=== PATIENT | male | born 1980 | race African-American/Black ===

== ENCOUNTER 2021-11-18 09:42 | Emergency (ER) | payer SELFPAY ==
--- NOTE | 2021-11-18 09:43 | ED.MALEGU ---
HPI - Male Genitourinary General Chief complaint: Urogenital-Male Stated complaint: STD Time Seen by Provider: 11/18/21 09:43 Source: patient Mode of arrival: ambulatory Limitations: no limitations History of Present Illness HPI Narrative: Mr. Farrar is a 41-year-old male patient presenting to the clinic today for possible STD. He reports his was tested 2 days ago and was positive for trichomonas. He denies any urinary symptoms, itching, or discharge from the penis. Review of Systems Review of Systems: Pertinent positives per HPI. Patient denies any fever, chills, rash, headache, visual changes, dizziness, cough, runny nose, sore throat, shortness of breath, chest pain, palpitations, nausea, vomiting, diarrhea, constipation, abdominal pain, or any urinary issues. PMFSH Comments At the time of my signature, I reviewed and agree with the nursing past medical, surgical, social, and family history. There is no relevant family history pertinent to the patient complaint. Exam Narrative: General: Well-developed, well nourished, in no apparent distress. Head: Normocephalic, atraumatic. Cardio: Regular rate and rhythm, s1 and s2 normal, no murmur appreciated. Resp: Clear to auscultation bilaterally, no rhonchi, rales, wheezing or rubs. Abdomen: Soft, pliable, bowel sounds present in all quadrants, non-tender to palpation, no organomegly, no CVAT tenderness. : Deferred Course Course Emergency Course: Portions of this record may have been created with voice recognition software. Level of Care: Express Care Visit Vital Signs Vital signs: Vital signs reviewed MDM - Male Genitourinary MDM Narrative Medical decision making narrative: At the time of visit patient is resting comfortably on the exam table. Patient has had positive exposure to trichomonas. Urine sent for trichomonas, chlamydia, and gonorrhea testing. We will send in prescription for single dose 2 g Flagyl to the pharmacy and patient was instructed on how to take this. Supportive measures were discussed and patient voiced understanding of discharge instruction Differential Diagnosis Differential diagnosis: Likely urinary tract infection, urethritis and other (STI exposure to trichomonas) Discharge Plan Discharge Clinical Impression: Exposure to sexually transmitted disease (STD), Trichomonas contact, untreated Patient Disposition: Home, Self-Care Condition: Stable Instructions: Antibiotic Form, Sexually Transmitted Diseases (ED), Safe Sex Practices (ED), Trichomoniasis (ED) Additional Instructions: Take flagyl 2 Gm single dose No intercourse x 1 week or until you get testing results. U/A testing send for culture for chlamydia, gonorrhea, and trichomonas. We will contact you with results when they come in. Follow up with your PCP as needed. Prescriptions: New metronidazole 500 mg tablet 2,000 mg PO DAILY Qty: 4 0RF Rx Instructions: take 4 tabs (2Gm) in single dose Follow-up/Referrals: PHYSICIAN,AUTO BODY WORKER [Primary Care Provider] - Time of Disposition: 10:04 Quality NIHSS Nursing Documentation ED NIHSS nursing documentation: reviewed/agree
[2021-11-18 09:55] VITALS: BP 149/81; PULSE 73; RESP 16; TEMP 36.6; O2SAT 100
== END 2021-11-18 10:05 | disposition home or self-care (01) ==
PROVIDERS: Emergency Provider Nurse Practitioner Family
DX: Z20.2 Contact with and (suspected) exposure to infections with a predominantly sexual mode of transmission (principal)
CPT/HCPCS: 87486; 87491; 87591; 87661; 99203; G0463

== ENCOUNTER 2021-11-30 12:09 | Emergency (ER) | payer SELFPAY ==
--- NOTE | 2021-11-30 12:31 | PC.NURSE ---
came to nurse station and stated needed to use br. said last time was here was given urine cup. was given ua spec. container and aware to take in rm [address] on counter on paper towel.
[2021-11-30 12:37] VITALS: BP 135/85; PULSE 63; RESP 16; TEMP 36.5; O2SAT 99
--- NOTE | 2021-11-30 13:05 | ED.MALEGU ---
HPI - Male Genitourinary General Chief complaint: Urogenital-Male Stated complaint: std testing Time Seen by Provider: 11/30/21 13:00 Source: patient and RN notes reviewed Mode of arrival: ambulatory Limitations: no limitations History of Present Illness HPI Narrative: 41-year-old male presents concern for exposure to STD. Reports his girlfriend tested positive for trichomoniasis, they were both treated. Reports possible rate exposure to trichomoniasis. He denies symptoms MD Complaint: possible STD exposure Related Data Allergies Allergy/AdvReac Type Severity Reaction Status Date / Time No Known Allergies Allergy Verified 11/30/21 13:10 Review of Systems Review of Systems: CONSTITUTIONAL: Denies malaise, chills, sweats, or fever. CARDIOVASCULAR: Denies chest pain, palpitations, or edema. RESPIRATORY: Denies cough or dyspnea. GASTROINTESTINAL: Denies abdominal pain, nausea, vomiting, diarrhea GENITOURINARY: Denies dysuria, frequency, urgency, suprapubic pressure. Denies flank pain or hematuria. Denies discharge SKIN: Denies rash or itching. MUSCULOSKELETAL: Denies back pain or myalgia. All systems reviewed & are unremarkable except as noted in HPI and below PMFSH Comments At time of signature, agree with nursing past medical, surgical, social and family history. There is no relevant family history pertinent to the presenting complaint Exam Narrative: GENERAL: Well-appearing, well-nourished, and in no acute distress. HEAD: Normocephalic. EYES: PERRLA, conjunctivae clear. NECK: Supple. No lymphadenopathy CHEST: Clear to auscultation. No respiratory distress. HEART: Regular rate and rhythm. SKIN: Warm, dry, no rash. NEURO: Alert and oriented x3. PSYCH: Normal mood and affect Course Course Emergency Course: Patient is aware of diagnosis, understands and agrees to treatment plan. Anticipatory guidance given. Patient agrees to follow-up as directed and is aware of reasons to seek care at the emergency department. Portions of this record may have been created with voice recognition software Level of Care: Express Care Visit Vital Signs Vital signs: Vital Signs Temperature 97.7 F 11/30/21 12:37 Pulse Rate 63 11/30/21 12:37 Respiratory Rate 16 11/30/21 12:37 Blood Pressure 135/85 11/30/21 12:37 Pulse Oximetry 99 11/30/21 12:37 Oxygen Delivery Room Air 11/30/21 12:37 Temperature 97.7 F 11/30/21 12:37 Pulse Rate 63 11/30/21 12:37 Respiratory Rate 16 11/30/21 12:37 Blood Pressure 135/85 11/30/21 12:37 Pulse Oximetry 99 11/30/21 12:37 Oxygen Delivery Room Air 11/30/21 12:37 Reviewed. MDM - Male Genitourinary MDM Narrative Medical decision making narrative: Exam findings show no acute concerns or changes; patient is non-toxic appearing and is in no distress. Patient is appropriate for outpatient treatment and follow-up. Differential Diagnosis Differential diagnosis: Likely urinary tract infection and urethritis Critical Care Time Critical Care Time Critical Care Time: No Discharge Plan Discharge Clinical Impression: Possible exposure to STD Patient Disposition: Home, Self-Care Condition: Stable Instructions: Antibiotic Form, Safe Sex Practices (ED) Additional Instructions: You have been tested for potential gonorrhea, chlamydia, and trichomoniasis today. A prescription has been called into your pharmacy to treat trichomoniasis. You will receive a phone call in 2-3 days with the results of today's testing; may need to return for treatment for gonorrhea or chlamydia if either of those are positive It is very important that you avoid unprotected intercourse during treatment and for 7 days AFTER TREATMENT is complete and until your partner(s) have been treated. Please encourage your partner(s) to seek testing and treatment. When you have been exposed to sexually transmitted infections, it is important that you seek comprehensive testing, since we do not
== END 2021-11-30 13:15 | disposition home or self-care (01) ==
PROVIDERS: Emergency Provider Nurse Practitioner
DX: Z04.89 Encounter for examination and observation for other specified reasons (principal)
CPT/HCPCS: 87491; 87591; 87661; 99213; G0463

== ENCOUNTER 2024-09-26 14:18 | Emergency (ER) | payer SELFPAY ==
--- NOTE | ~2024-09-26 | CT_ITS ---
EXAMINATION: CT abdomen pelvis w con DATE: 09/26/2024 16:03 INDICATION: Hematemesis TECHNIQUE: Computed tomography (CT) of the abdomen and pelvis was performed with 100 mL Omnipaque-350 intravenous contrast. Automated exposure control and iterative reconstruction technique were employe d. The dose-length product was 219.95 mGy-cm. COMPARISON: None FINDINGS: Mild dependent atelectasis in bilateral lower lobes. Arch size is normal. No pericardial or pleural e ffusion. Liver, gallbladder, spleen, pancreas, bilateral adrenal glands and kidneys are normal. Bladd er is normal. Bowels including the appendix are normal. No free intraperitoneal gas or fluid. No path ologically enlarged abdominal or pelvic lymphadenopathy. Mild disc height loss with vacuum phenomena at L5-S1. There are relatively symmetric mixed lytic and sclerotic lesions at the bilateral iliac bon es along side the bilateral sacroiliac joints. IMPRESSION: 1. No acute intra-abdominal/pelvic process. 2. Indeterminate relatively symmetric mixed lytic and sclerotic lesions at the bilateral iliac bones along side the sacroiliac joints. Consider bone scan for further evaluation and correlate with any pr ior outside imaging if available. Reviewed, dictated and finalized at location B. IMPRESSION: 1. No acute intra-abdominal/pelvic process. 2. Indeterminate relatively symmetric mixed lytic and sclerotic lesions at the bilateral iliac bones along side the sacroiliac joints. Consider bone scan for further evaluation and correlate with any prior outside imaging if available.
[2024-09-26 14:28] VITALS: BP 131/87; PULSE 70; RESP 18; TEMP 36.7; O2SAT 99
[2024-09-26 15:01] LABS: Alanine Aminotransferase 40 U/L (6-50); Albumin Level 4.6 g/dL (3.5-5.1); Alkaline Phosphatase 54 U/L (38-126); Anion Gap 7 mmol/L (4-12); Aspartate Amino Transferase 55 U/L (17-59); Bilirubin,Total 0.4 mg/dL (0.2-1.3); Blood Urea Nitrogen 11 mg/dL (9-20); Calcium 9.5 mg/dL (8.4-10.2); Carbon Dioxide 30 mmol/L (22-30); Chloride 104 mmol/L (98-107); Estimated CRCL calculation 85 ml/min; Estimated Glomerular Filt Rate > 60; Glucose 103 mg/dL (65-110); Lipase 56 U/L (23-300); Potassium 4.4 mmol/L (3.4-5.0); Sodium 141 mmol/L (137-145); Total Protein 8.1 g/dL (6.3-8.2)
[2024-09-26 15:02] LABS: Basophils Absolute Auto 0.1 K/mm3 (0.0-0.1); Eosinophils Percent Auto 0.1 % (0-4.4); Hematocrit 42.8 % (42.0-52.0); Hemoglobin 14.3 g/dL (14.0-18.0); Immature Granulocyte Absolute 0.04 K/mm3 (0.00-0.031); Immature Granulocyte Percent A 0.5 % (0-0.5); Lymphocytes Absolute Auto 1.62 K/mm3 (0.9-3.2); Lymphocytes Percent Auto 18.4 % (18.3-44.2); Mean Corpuscular HGB Conc 33.4 g/dl (32-36); Mean Corpuscular Hemoglobin 29.7 pg (26-34); Mean Platelet Volume 9.9 fl (7.4-10.4); Monocytes Absolute Auto 0.5 K/mm3 (0.1-0.6); Neutrophils Absolute Auto 6.5 K/mm3 (1.3-6.7); Platelet Count Result 297 k/mm3 (150-375); Red Blood Count 4.81 M/mm3 (4.6-6.20); Red Cell Distribution Width 14.2 % (11.5-14.5); White Blood Count 8.8 K/mm3 (4.5-10.0)
[2024-09-26 15:37] LABS: Add Urine Microscopic? YES; Appearance Urine Clear (Clear); Bacteria Urine None Seen /hpf; Bilirubin Urine Negative (Negative); Blood Urine Negative (Negative); Color Urine Yellow (Yellow); Glucose Urine UA Negative (Negative); Ketones Urine Negative (Negative); Leukocyte Esterase Ur Negative LEU/UL (Negative); Nitrate Urine Negative (Negative); Non Pathogenic Casts 0-2; Protein Urine Trace mg/dL (Negative); RBC Urine 0-2 /hpf (0-2); Specific Grav Ur 1.018 (1.001-1.035); Squamous Epithelial Cell Urine None Seen /hpf (Few); WBC Urine 0-5 /hpf (0-3); pH Urine >=9.0 (5.0-9.0)
[2024-09-26 16:20] VITALS: BP 159/93; PULSE 70; RESP 19; O2SAT 98
--- NOTE | 2024-09-26 17:10 | ED.GENADULT ---
HPI - General Adult General Chief complaint: GI Bleed Stated complaint: vomiting blood, abdominal pain Time Seen by Provider: 09/26/24 14:28 History of Present Illness HPI narrative: This is a 44-year-old male presenting with concerns about vomiting blood. Patient had a gas station hot dog and then a fruit punch. He then had several episodes of nausea and vomiting that was at 1st pink and red. However later it became more mucous-like with traces of red blood. He says some crampy abdominal pain. No diarrhea. No history of liver cirrhosis. He does have a remote history of peptic ulcer disease. No melena or hematochezia. No use of blood thinners Related Data Allergies Allergy/AdvReac Type Severity Reaction Status Date / Time No Known Allergies Allergy Verified 09/26/24 14:36 Exam Narrative: APPEARANCE: No apparent distress. Head: atraumatic. EYES: EOMI, NOSE: Atraumatic NECK: Trachea midline RESPIRATORY: No increased rate of breathing CARDIOVASCULAR: RRR, ABDOMINAL: Non-distended soft nontender no guarding rebound Digital rectal exam revealed no hematochezia or melena. Hemoccult negative. MUSCULOSKELETAl: No obvious deformities NEURO: Alert. Moving 4/4 extremities SKIN:: Warm, dry. Normal color PSYCHIATRIC: Normal affect Course Vital Signs Vital signs: Vital Signs Temperature 98.1 F 09/26/24 14:28 Pulse Rate 70 09/26/24 14:28 Respiratory Rate 18 09/26/24 14:28 Blood Pressure 131/87 09/26/24 14:28 Pulse Oximetry 99 09/26/24 14:28 Oxygen Delivery Room Air 09/26/24 14:28 Temperature 98.1 F 09/26/24 14:28 Pulse Rate 70 09/26/24 16:20 Respiratory Rate 19 09/26/24 16:20 Blood Pressure 159/93 H 09/26/24 16:20 Pulse Oximetry 98 09/26/24 16:20 Oxygen Delivery Room Air 09/26/24 14:28 Medical Decision Making MDM Narrative Medical decision making narrative: -Course: 44-year-old male presenting with nausea and vomiting after eating a gas station hot dog. Patient is concerned about GI bleeding. Hemoglobin is stable. No elevations in BUN to indicate an upper GI bleed. No history of liver cirrhosis. No melena or hematochezia or Hemoccult positive stools. Patient was monitored in the ED for several hours and symptoms have resolved. CT abdomen pelvis had no GI findings. There were some sclerotic/lytic lesions in his pelvis of unknown etiology.Patient discharged with return precautions. -DDX includes but is not limited to: Maia-Goodman tears, gastritis, peptic ulcer disease, Vital Signs Vital Signs: Vital Signs Temperature 98.1 F 09/26/24 14:28 Pulse Rate 70 09/26/24 14:28 Respiratory Rate 18 09/26/24 14:28 Blood Pressure 131/87 09/26/24 14:28 Pulse Oximetry 99 09/26/24 14:28 Oxygen Delivery Room Air 09/26/24 14:28 Temperature 98.1 F 09/26/24 14:28 Pulse Rate 70 09/26/24 16:20 Respiratory Rate 19 09/26/24 16:20 Blood Pressure 159/93 H 09/26/24 16:20 Pulse Oximetry 98 09/26/24 16:20 Oxygen Delivery Room Air 09/26/24 14:28 Lab Data 09/26/24 14:34 09/26/24 14:34 Labs: Lab Results 09/26/24 09/26/24 Range/Units 14:34 15:26 WBC 8.8 (4.5-10.0) K/mm3 RBC 4.81 (4.6-6.20) M/mm3 Hgb 14.3 (14.0-18.0) g/dL Hct 42.8 (42.0-52.0) % MCV 89.0 (80-100) fl MCH 29.7 (26-34) pg MCHC 33.4 (32-36) g/dl RDW 14.2 (11.5-14.5) % Plt Count 297 (150-375) k/mm3 MPV 9.9 (7.4-10.4) fl Immature Gran % (Auto) 0.5 (0-0.5) % Neut % (Auto) 74.0 H (45.5-73.1) % Lymph % (Auto) 18.4 (18.3-44.2) % [place] % (Auto) 6.0 (2.6-8.5) % Eos % (Auto) 0.1 (0-4.4) % Baso % (Auto) 1.0 (0.2-1.2) % Lymph # (Auto) 1.62 (0.9-3.2) K/mm3 [place] # (Auto) 0.5 (0.1-0.6) K/mm3 Eos # (Auto) 0.0 (0-0.3) K/mm3 Baso # (Auto) 0.1 (0.0-0.1) K/mm3 Abs Immat Gran (auto) 0.04 H (0.00-0.031) K/mm3 Absolute Neuts (auto) 6.5 (1.3-6.7) K/mm3 Absolute Nucleated RBC 0.000 (0.0-0.012) K/mm3 Nucleated RBC % 0.0 (0.0-0.2) % Sodium 141 (137-145) mmol/L Potassium 4.4 (3.4-5.0) mmol/L Chloride 104 (98-107) mmol/L Carbon Dioxide 30 (22-30) mmol/L Anion Gap 7 (4-12) mmol/L BUN 11 (9-20) mg/dL Creatinine 1.00 (0.7-1.3) mg/dL Estim Creat Clear Calc 85 ml/min Estimated GFR > 60 (59 - ) Glucose 103 (65-110) mg/dL Calcium 9.5 (8.4-10.2) mg/dL Total Bilirubin 0.4 (0.2-1.3) mg/dL AST 55 (17-59) U/L ALT 40 (6-50) U/L Alkaline Phosphatase 54 (38-126) U/L Total Protein 8.1 (6.3-8.2) g/dL Albumin 4.6 (3.5-5.1) g/dL Lipase 56 (23-300) U/L Urine Color Yellow (Yellow) Urine Appearance Clear (Clear) Urine pH >=9.0 H (5.0-9.0) Ur Specific [place] 1.018 (1.001-1.035) Urine Protein Trace (Negative) mg/dL Urine Glucose (UA) Negative (Negative) mg/dL Urine Ketones Negative (Negative) mg/dL Ur Blood (Man) Negative (Negative) Urine Nitrate Negative (Negative) Urine Bilirubin Negative (Negative) Urine Urobilinogen 1.0 (<2.0) mg/dL Leukocyte Esterase Rfl Negative (Negative) RYDER/UL Urine RBC 0-2 (0-2) /hpf Urine WBC 0-5 (0-3) /hpf Ur Squamous Epith Cells None seen (Few) /hpf Urine Bacteria None seen /hpf Urine Casts 0-2 Blood Type O Positive Antibody Screen Negative Discharge Plan Discharge Clinical Impression: Nausea & vomiting, Maia-Goodman tear, Bone lesion Patient Disposition: Home Condition: Stable Instructions: Antibiotic Form, Acute Nausea and Vomiting (DC) Additional Instructions: You were seen in the emergency department nausea and vomiting. Please eat a bland diet until you start feeling better. Use Zofran for nausea. I did not see any evidence of a GI bleed today but if you develop dark tarry stools or bright red blood per rectum, or started vomiting red blood please return to the ED for re-evaluation. Your CT showed a bony lesion in your pelvis. This needs to be further evaluated by our Heme oncologist Dr. Moreno. Please call his clinic in follow-up in the next [address] Thorpe to establish primary care. Patient Language: [place] Prescriptions: No Action metronidazole 500 mg tablet 2,000 mg PO ONCE Qty: 4 0RF Follow-up/Referrals: Carlos Moreno MD [Physician] - 1 Week (Bony pelvic lesion) PHYSICIAN,NURSE INFORMATICS EDUCATOR [Primary Care Provider] - Jace Thorpe MD [Physician] - 1 Week (Establish pcp)
[2024-09-26 17:31] VITALS: BP 151/93; PULSE 68; RESP 20; O2SAT 99
== END 2024-09-26 17:32 | disposition home or self-care (01) ==
PROVIDERS: Emergency Provider Emergency Medicine
DX: R11.2 Nausea with vomiting, unspecified (principal); K22.6 Gastro-esophageal laceration-hemorrhage syndrome; M89.9 Disorder of bone, unspecified
CPT/HCPCS: 36415; 74177; 80053; 81001; 83690; 85025; 86850; 86900; 86901; 99284; Q9967